=== PATIENT | female | born 1965 | race Caucasian/White ===

== ENCOUNTER 2022-09-30 06:47 | Day surgery (SDC) | payer OTHER ==
[2022-09-24 16:00] LABS: BASOPHILS # (AUTO) 0.1 X10'3 (0-0.2); BASOPHILS % (AUTO) 1.4 % (0-1); EOSINOPHILS # (AUTO) 0.1 X10'3 (0-0.9); EOSINOPHILS % (AUTO) 1.1 % (0-6); LYMPHOCYTES # (AUTO) 1.6 X10'3 (1.1-4.8); LYMPHOCYTES % (AUTO) 29.6 % (21-51); MEAN CORPUSCULAR HEMOGLOBIN 30.3 PG (27.0-31.0); MEAN CORPUSCULAR HGB CONC 33.3 g/dL (33.0-36.5); MEAN PLATELET VOLUME 7.7 FL (7.4-10.4); MONOCYTES # (AUTO) 0.5 X10'3 (0-0.9); MONOCYTES % (AUTO) 8.9 % (2-12); NEUTROPHILS # (AUTO) 3.1 X10'3 (1.8-7.7); PRE OP HEMATOCRIT 42.2 % (35.0-45.0); PRE OP HEMOGLOBIN 14.1 g/dL (12.0-16.0); PRE OP PLATELET COUNT 227 X10'3 (140-440); RED BLOOD COUNT 4.64 X10'6 (4.20-5.60); RED CELL DISTRIBUTION WIDTH 12.6 % (11.5-14.5)
[2022-09-24 16:17] LABS: ALBUMIN 3.5 G/DL (3.4-5.0); ALBUMIN/GLOBULIN RATIO 1.1 (1.1-1.5); ALKALINE PHOSPHATASE 81 IU/L (46-116); BLOOD UREA NITROGEN 15 MG/DL (7-18); BUN/CREATININE RATIO 11.6 (6.6-38.0); CALCIUM 8.8 MG/DL (8.5-10.1); CHLORIDE 104 MMOL/L (99-107); CREATININE 1.29 MG/DL (0.40-0.90); PRE OP ALT 35 U/L (30-65); PRE OP ANION GAP 6 (8-16); PRE OP AST 26 U/L (10-37); PRE OP BILIRUB, TOTAL 0.3 MG/DL (0.0-1.0); PRE OP GLUCOSE 110 MG/DL (70-104); PRE OP POTASSIUM 3.9 MMOL/L (3.4-5.1); PRE OP SODIUM 138 MMOL/L (135-145); TOTAL CARBON DIOXIDE 27.7 MMOL/L (24-32); TOTAL PROTEIN 6.6 G/DL (6.4-8.2); eGFR 42 ML/MIN
[2022-09-30] VITALS (12 sets, daily range): BP systolic 112–148; BP diastolic 71–97
[~2022-09-30] VITALS: Ht 157.5 cm; Wt 83.9 kg
[~2022-09-30 06:47] MED LIST: CALC500T63 PO; ESSENTIAL OILS; MULT-1085 PO; VITAMIN B; ceFAZolin inj. 2,000 MG in dextrose 5%-water 100 ML IV ONE; famotidine 20mg tablet PO ONE; ringers solution, lacted 1,000 ML IV SCH
--- NOTE | 2022-09-30 08:00 | NUR ---
STATES 09/25 STARTED HAVING A COUGH AND SLIGHT ZAVALA. MOSTLY NOW, JUST OCCASIONAL COUGH. ANESTHESIA AND MD NOTIFIED. COVID TEST GIVEN WITH NEGATIVE RESULTS.
[2022-09-30] MEDS ORDERED: meperidine/PF 25mg/ml syringe IV PRN ×3 (08:30)
[2022-09-30] MEDS ORDERED: ondansetron/PF 4mg/2ml inj IV PRN (08:30)
[2022-09-30] MEDS ORDERED: morphine 4 MG/ML inj SYRINge IV PRN (08:30)
[2022-09-30] MEDS ORDERED: ringers solution, lacted 1,000 ML IV SCH (08:30)
[2022-09-30] MEDS ORDERED: ketorolac trometh. 30mg/ml inj. IV ONE (08:30)
[2022-09-30] MEDS ORDERED: proCHLORperazine 10 MG/2 ml inj IV PRN (08:30)
[2022-09-30] MEDS ORDERED: morphine 2 MG/ML inj. syringe IV PRN (08:30)
[2022-09-30] MEDS ORDERED: hydrALAZINE 20mg/ml inj. IV PRN (08:30)
[2022-09-30] MEDS ORDERED: labetalol 20mg/4ml (5mg/ml) syringe IV PRN (08:30)
[2022-09-30] MEDS ORDERED: acetaminophen 1,000mg/100ml IV 100 ML IV PRN (08:30)
[2022-09-30] MEDS ORDERED: LIDOcaine 1% 30ml preserv. free vial ONE (09:12)
[2022-09-30] MEDS ORDERED: BUPIVAcaine 0.5% inj/PF 30 ML ONE (09:12)
[2022-09-30] MEDS ORDERED: sevoflurane 250ml liquid IH ONE (09:32)
[2022-09-30] MEDS ORDERED: glycopyrrolate 0.2mg/ml inj ONE (09:32)
[2022-09-30] MEDS ORDERED: midazolam 1 mg/ML 2ml injection ONE (09:33)
[2022-09-30] MEDS ORDERED: fentaNYL /PF 50mcg/ml 5ml ampule ONE (09:33)
[2022-09-30] MEDS ORDERED: BUPIVAcaine 0.5% inj/PF 30 ml vial IJ ONE (10:08)
[2022-09-30] MEDS ORDERED: neostigmine methylsulfate 1 MG/ML 10ml vial ONE (10:15)
[2022-09-30] MEDS ORDERED: LIDOcaine 2% (20mg/ml) 5ml vial ONE (10:15)
[2022-09-30] MEDS ORDERED: propofol inj 20 ML IV ONE (10:15)
[2022-09-30] MEDS ORDERED: rocuronium 10mg/ml inj IV ONE (10:15)
[2022-09-30] MEDS ORDERED: dexamethasone sod phosphate 4mg/ml inj. ONE (10:15)
[2022-09-30] MEDS ORDERED: 0.9 % SODIUM CHLORIDE 10 ML VIAL ONE (10:15)
[2022-09-30] MEDS ORDERED: ePHEDrine 50MG/ML INJ. ONE (10:15)
[2022-09-30] MEDS ORDERED: ondansetron/PF 4mg/2ml inj ONE (10:15)
--- NOTE | 2022-09-30 10:52 | NUR ---
Received from OR via [facility] IN STABLE CONDITION , accompanied by Anesthesiologist and SOLAR SALES ASSESSOR report given by SOLAR SALES ASSESSOR AND Anesthesiolgist. Addendum: 09/30/22 at 1106 by Omayra Lama RN Amended: Links added.
[2022-09-30] MEDS ORDERED: HYDROcodone/acetaminophen 5mg/325mg tablet PO PRN ×2 (10:55→12:15)
[2022-09-30] MEDS ORDERED: benzonatate 100mg capsule PO PRN (11:00)
--- NOTE | 2022-09-30 13:03 | NUR ---
PATIENT DISCHARGED FROM PACU IN STABLE CONDITION AFTER WRITTEN AND VERBAL DISCHARGE INSTRUCTIONS GIVEN. PATIENT GIVEN AND INSTRUCTED ON USE OF IS. PATIENT GAVE VERBAL UNDERSTANDING OF INSTRUCTIONS GIVEN. PATIENT LEFT FACILITY VIA WHEELCHAIR WITH RN. Addendum: 09/30/22 at 1305 by Omayra Lama RN Amended: Links added.
== END 2022-09-30 12:42 | disposition home or self-care (01) ==
LOC: PAS 06:47
PROVIDERS: ATTEND Surgery
DX: K40.90 Unilateral inguinal hernia, without obstruction or gangrene, not specified as recurrent (principal); K41.90 Unilateral femoral hernia, without obstruction or gangrene, not specified as recurrent; K42.9 Umbilical hernia without obstruction or gangrene; E66.9 Obesity, unspecified; G43.909 Migraine, unspecified, not intractable, without status migrainosus; M19.90 Unspecified osteoarthritis, unspecified site; J45.909 Unspecified asthma, uncomplicated; Z68.33 Body mass index [BMI] 33.0-33.9, adult; Z87.891 Personal history of nicotine dependence; Z79.899 Other long term (current) drug therapy; Z98.890 Other specified postprocedural states
CPT/HCPCS: 36415; 49585; 49650; 49659; 80053; 82948; 85025; 87811; 93005; C1781; J0131; J0690; J1100; J1885; J2250; J2405; J2704; J2710; J3010; J3490; J7030; J7060; J7120; S0020; S2900; Z7506; Z7508; Z7512; A4215; A4618